=== PATIENT | female | born 1985 | race African-American/Black ===

== ENCOUNTER 2020-01-14 10:33 | Outpatient (REF) | payer MEDICAID, SELFPAY ==
--- NOTE | 2020-01-14 10:00 | PAPFT_PTH ---
PATIENT: BAMBI BLAND LOC: [facility] U#:[id number] AGE/SX: 34/F ROOM: RE01/14/[address]: MANUELA Fischer : 1985 BED: DIS: 01/14/2020 SPEC #: [id number] RECD: 01/14/20 12:51 STATUS: SAVANNAH REQ #: [id number] [place]: 01/14/20 10:[address]: Mariluz Marshall DEPT: [facility] Cytology RECD BY: Amy Irwin ENTERED: 01/14/20 12:52 SP TYPE: PAPFT OTHR DR: Gina Becker Tissues: 1 - CX/ENDOCX FOR PAP SMEARS Procedures: PAP THIN PREP/[facility] Screening HPV DNA PROBE Comments: [id number]
== END 2020-01-14 10:53 ==
LOC: LBN 10:33
PROVIDERS: PCP Nurse Practitioner Adult Health; Visit Provider Nurse Practitioner Family
DX: Z12.4 Encounter for screening for malignant neoplasm of cervix (principal); Z97.5 Presence of (intrauterine) contraceptive device; Z11.51 Encounter for screening for human papillomavirus (HPV)
CPT/HCPCS: 88142; 87624

== ENCOUNTER 2020-01-14 12:15 | Outpatient (REF) | payer MEDICAID, SELFPAY ==
[2020-01-15 14:27] LABS: Chlamydia Result Negative (Negative); GC Result Negative (Negative)
== END 2020-01-14 12:35 ==
LOC: LBN 12:15
PROVIDERS: PCP Nurse Practitioner Adult Health; Visit Provider Nurse Practitioner Family
DX: Z11.3 Encounter for screening for infections with a predominantly sexual mode of transmission (principal)
CPT/HCPCS: 87491; 87591